=== PATIENT | female | born 2000 | race Caucasian/White ===

== ENCOUNTER 2023-02-03 19:47 | Emergency (ER) | payer MEDICAID ==
[~2023-02-03] VITALS: Ht 160 cm; Wt 83.0 kg
[2023-02-03 20:34] VITALS: BP 136/76
[2023-02-03 21:17] LABS: BASOPHILS % 0.3 % (0.0-2.0); EOSINOPHILS % 0.8 % (0.0-5.0); HEMATOCRIT. 37.4 % (36.0-48.0); HEMOGLOBIN. 12.4 g/dL (12.0-16.0); LYMPHOCYTES % 13.2 % (20.0-50.0); MEAN CORPUSCULAR HEMOGLOBIN 26.2 pg (28.0-32.0); MEAN CORPUSCULAR VOLUME 79.4 fL (81.0-99.0); MEAN PLATELET VOLUME 8.5 fl (7.4-10.4); NEUTROPHILS % 78.7 % (40.0-76.0); PLATELET 300 x1000/uL (130-400); RED BLOOD CELL COUNT 4.72 mill/uL (4.2-5.4); RED CELL DISTRIBUTION WIDTH 15.2 % (11.6-14.6)
[2023-02-03 21:24] LABS: CHLORIDE 105 mEq/L (98-107)
[2023-02-03 22:43] LABS: CLARITY URINE TURBID (CLEAR); COLOR URINE YELLOW (YELLOW); KETONES URINE NEGATIVE (NEGATIVE); LEUKOCYTE ESTERASE URINE 3+ (NEGATIVE); NITRITE URINE NEGATIVE (NEGATIVE); OCCULT BLOOD URINE 3+ (NEGATIVE); PH URINE 6.5 (4.5-8.0); PROTEIN URINE 3+ (NEGATIVE); SPECIFIC GRAVITY URINE 1.012 (1.005-1.030); UROBILINOGEN URINE 0.2 E.U./dL (0.2-1.0)
[2023-02-04] MEDS ORDERED: KETOROLAC 30MG/ML VIAL IM ONE (01:00)
[2023-02-04] MEDS ORDERED: CEPHALEXIN 250MG CAPSULE PO ONE (01:00)
[2023-02-04] MEDS ORDERED: CEPH500T MT (01:03)
== END 2023-02-04 01:19 | disposition home or self-care (01) ==
LOC: ER 19:47
DX: N12 Tubulo-interstitial nephritis, not specified as acute or chronic (principal)
CPT/HCPCS: 36415; 74176; 80053; 81003; 81025; 85025; 87077; 87086; 87186; 96372; 99285; J1885; Z7610

== ENCOUNTER 2024-10-08 11:26 | Emergency (ER) | payer MEDICAID ==
[~2024-10-08] VITALS: Ht 160 cm; Wt 62.0 kg
[~2024-10-08 11:26] MED LIST: CEPH500T MT
[2024-10-08 11:30] VITALS: O2SAT 100
[2024-10-08] MEDS ORDERED: KETOROLAC 30MG/ML VIAL IV STA (13:16)
[2024-10-08] MEDS ORDERED: ONDANSETRON HCL 4MG/2ML INJ IV ONE (13:30)
[2024-10-08 14:01] LABS: CLARITY URINE CLEAR (CLEAR); COLOR URINE YELLOW (YELLOW); GLUCOSE URINE NEGATIVE (NEGATIVE); KETONES URINE NEGATIVE (NEGATIVE); LEUKOCYTE ESTERASE URINE NEGATIVE (NEGATIVE); NITRITE URINE NEGATIVE (NEGATIVE); OCCULT BLOOD URINE NEGATIVE (NEGATIVE); PROTEIN URINE NEGATIVE (NEGATIVE); SPECIFIC GRAVITY URINE 1.026 (1.005-1.030); UROBILINOGEN URINE 0.2 E.U./dL (0.2-1.0)
[2024-10-08 14:12] LABS: HEMATOCRIT. 39.9 % (36.0-48.0); HEMOGLOBIN. 13.3 g/dL (12.0-16.0); MEAN CORPUSCULAR HEMOGLOBIN 29.7 pg (28.0-32.0); MEAN CORPUSCULAR HGB CONC 33.3 g/dL (31.0-37.0); MEAN CORPUSCULAR VOLUME 89.2 fL (81.0-99.0); MEAN PLATELET VOLUME 9.3 fl (7.4-10.4); PLATELET 259 x1000/uL (130-400); RED BLOOD CELL COUNT 4.48 mill/uL (4.2-5.4); RED CELL DISTRIBUTION WIDTH 13.2 % (11.6-14.6); WHITE BLOOD COUNT 17.1 x1000/uL (4.5-11.0)
[2024-10-08 14:19] LABS: DIFFERENTIAL COMMENT 1
[2024-10-08 14:22] LABS: CHLORIDE 108 mEq/L (98-107); SODIUM 140 mEq/L (136-145)
[2024-10-08 14:23] LABS: CALCIUM 9.3 mg/dL (8.7-10.4); CARBON DIOXIDE 23 mEq/L (21-32)
[2024-10-08 14:28] LABS: CREATININE 0.6 mg/dL (0.6-1.0); GLUCOSE 101 mg/dL (70-105); UREA NITROGEN BLOOD 12 mg/dL (9-23)
[2024-10-08] MEDS ORDERED: PIPERACILLIN/TAZO 3.375G/50ML 50 ML IV SCH (14:30)
[2024-10-08] MEDS ORDERED: KETOROLAC 30MG/ML VIAL IV NR (14:30)
[2024-10-08] MEDS ORDERED: ONDANSETRON HCL 4MG/2ML INJ IV NR (14:30)
[2024-10-08 14:45] VITALS: TEMP 37.00296; O2SAT 100
[2024-10-08] MEDS ORDERED: BUPIVACAINE HCL/PF 0.5% (5MG/ML) 10ML ONE (14:57)
[2024-10-08 15:07] LABS: PLATELET ESTIMATE NORMAL
[2024-10-08] MEDS ORDERED: FENTANYL CITRATE/PF 50MCG/ML 2ML VIAL ONE (15:18)
[2024-10-08] MEDS ORDERED: ROCURONIUM BROMIDE 10MG/ML VIAL 5ML IV ONE (15:18)
[2024-10-08] MEDS ORDERED: PROPOFOL 200MG/20ML VIAL IV ONE ×2 (15:18→16:39)
[2024-10-08] MEDS ORDERED: MIDAZOLAM HCL 2 MG/2 ML VIAL ONE (15:18)
[2024-10-08] MEDS ORDERED: LIDOCAINE HCL 1% 20ML VIAL ONE (15:18)
[2024-10-08] MEDS ORDERED: SUGAMMADEX SODIUM 200MG/2ML VIAL IV ONE (15:25)
[2024-10-08] MEDS ORDERED: ACETAMINOPHEN 1000MG/100ML 100 ML IV ONE (15:25)
[2024-10-08] MEDS ORDERED: ONDANSETRON HCL 4MG/2ML INJ IV PRN (15:45)
[2024-10-08] MEDS ORDERED: FENTANYL CITRATE/PF 50MCG/ML 2ML VIAL IV PRN (15:45)
[2024-10-08] MEDS ORDERED: ESMOLOL HCL 10MG/ML 10ML VIAL IV ONE (16:21)
[2024-10-08 18:31] VITALS: BP 109/73; PULSE 77; RESP 17
[2024-10-08] MEDS: HYDROMORPHONE HCL/PF 1MG/ML INJ IV PRN (18:31)
== END 2024-10-08 15:30 | disposition admitted as inpatient to this hospital (09) ==
LOC: ER 11:35 → EDBEDREQ 14:24 → EDBEDREQTM 14:40 → ER 15:30
DX: K35.80 Unspecified acute appendicitis (principal); Z79.899 Other long term (current) drug therapy
CPT/HCPCS: 44970; 80048; 81003; 81025; 83690; 85025; 36415; 88304; 74176; 96374; 99291; J3010; J0665; J3490 ×3; J1885; J2250; J2405; J2704; J1171; A4217 ×2; Z7610 ×26; J7030; J0131